=== PATIENT | female | born 1970 | race American Indian/Alaskan Native ===

== ENCOUNTER 2017-03-24 04:13 | Emergency (ER) | payer BC, OTHER ==
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
[2017-03-24 04:54] LABS: CHLORIDE,CL 111 mmol/L (101-111); SODIUM,NA 150 mmol/L (135-145)
[2017-03-24] MEDS ORDERED: Iopamidol 755 Mg/ML 100 ML Bottle IVPUSH ONE (05:04)
[2017-03-24 06:10] VITALS: BP 131/89
--- NOTE | 2017-04-14 09:25 | EKG ---
03/24/2017- AUSTYN DISLA - This is a 12 lead standard EKG showing sinus tachycardia with a ventricular rate of 105 beats per minute, normal [place] interval, QRS duration, normal axis, no significant ST-T changes. [facility] /[id number]
== END 2017-03-24 06:41 | disposition home or self-care (01) ==
LOC: DL.ED 04:13
DX: R07.89 Other chest pain (principal); I10 Essential (primary) hypertension; F32.9 Major depressive disorder, single episode, unspecified; Z98.890 Other specified postprocedural states; Z90.89 Acquired absence of other organs; Z79.899 Other long term (current) drug therapy
CPT/HCPCS: 36415; 71010; 71260; 80053; 80305; 81001; 84484; 85025; 85379; 93005; 99285; Q9967